=== PATIENT | female | born 1985 ===

== ENCOUNTER 2021-06-13 17:51 | Emergency (ER) | payer SELFPAY ==
--- NOTE | ~2021-06-13 | XR_ITS ---
EXAMINATION: XR KNEE, LEFT CLINICAL INFORMATION: Knee pain after fall COMPARISON: None TECHNIQUE: Four views of the left knee. FINDINGS: There is a transverse fracture through the mid patella with marked soft tissue swelling anteriorly and a associated moderate joint effusion. On the lateral radiograph, a more inferior fracture fragment is seen indicating a comminuted fracture. The distal femur, tibia and fibula appear unremarkable. Joint spaces are well maintained. No abnormal soft tissue calcification. XR/XR knee LT 4V IMPRESSION: Comminuted patellar fracture with associated soft tissue swelling and joint effusion.
[2021-06-13 18:03] VITALS: BP 123/71; PULSE 78; RESP 18; TEMP 36.6; O2SAT 99; BMI 28.3
--- NOTE | 2021-06-13 18:38 | ED.LOWEXIN ---
HPI - Extremity Injury (Lower) General Chief Complaint: Extremity Problem Stated Complaint: knee injury Time Seen by Provider: 06/13/21 18:16 Source: patient Mode of arrival: ambulatory Limitations: no limitations History of Present Illness HPI Narrative: 36-year-old female here with reports of left knee pain after a slip and fall landing directly on the left knee. Patient denies any head injury or any other complaints. Patient is currently trying to get and her last period was about 2 weeks ago. She is unsure if she is today. Related Data Previous Rx's Medication Instructions Recorded acetaminophen 500 mg tablet 500 mg PO Q6H PRN #30 tab 06/13/21 (Tylenol Extra Strength) Allergies Allergy/AdvReac Type Severity Reaction Status Date / Time No Known Allergies Allergy Verified 06/13/21 18:48 Review of Systems Review of Systems: Yes all other systems are reviewed and are negative Constitutional: Constitutional: Reports no additional constitutional complaints, Denies body ache(s), Denies chills, Denies fever(s), Denies headache(s) and Denies weakness Eyes: Eyes: Reports no additional eye complaints and Denies change in vision ENT: Reports system reviewed and no additional complaints, except as documented, Denies dizziness, Denies headache(s), Denies nasal congestion, Denies nasal discharge and Denies neck pain Cardiovascular: Cardiovascular: Reports no additional cardiovascular complaints, Denies chest pain, Denies leg edema and Denies dyspnea Respiratory: Respiratory: Reports no additional respiratory complaints, Denies cough and Denies dyspnea Gastrointestinal: Gastrointestinal: Reports no additional gastrointestinal complaints, Denies abdominal pain, Denies diarrhea, Denies nausea and Denies vomiting Genitourinary: Genitourinary: Reports no additional female genitourinary complaints and Denies urinary incontinence Musculoskeletal: Musculoskeletal: Reports no additional musculoskeletal complaints, Denies back pain, Reports arthralgias, Reports joint swelling, Reports limited range of motion, Denies neck pain, Denies numbness and Denies tingling Integumentary/Breasts: Skin/Breast: Reports system reviewed and no additional complaints, except as docu and Denies rash Neurologic: Reports system reviewed and no additional complaints, except as documented, Denies Abnormal speech present, Denies dizziness, Denies headache(s), Denies numbness, Denies tingling and Denies weakness [facility] Past Medical History Attestation statement: The following information was validated with the patient. Source: old records reviewed and nursing notes reviewed Social History Social History Advance Directives: No Advance Directives Information Provided: No Physical Exam Vital Signs: Vital Signs: Last Vital Signs Temp 97.8 F 06/13/21 18:03 Pulse 78 06/13/21 18:03 Resp 18 06/13/21 18:03 BP 123/71 06/13/21 18:03 Pulse Ox 99 06/13/21 18:03 BMI result Body Mass Index 28.3 Const: General: cooperative, healthy appearing, comfortable and no acute distress Orientation/consciousness: patient oriented x3 Limitations: no limitations HENMT: Head: Yes normal to inspection Ears: hearing grossly normal bilaterally General nose exam: Normal external nose present Face and sinus: Yes normal facial exam Mouth: Normal oral and palatal mucosa present Throat: Yes posterior oropharynx normal Eyes: General: appearance normal, both eyes and all related structures Pupils: Equal, round and reactive pupils present Neck: Neck: Yes normal visual inspection Chest: Chest palpation & inspection: normal inspection of the chest Resp: Effort & Inspection: normal respiratory effort Auscultation: clear to auscultation bilaterally Cardio: Rate: regular rate Rhythm: regular rhythm Peripheral pulses: Peripheral pulses 2+ throughout GI: Inspection: Yes normal to inspection Palpation (GI): Soft to palpation and nontender Auscultation: normal bowel sounds Back/Spine/Pelvis: Thoracic/Lumbar Spine: thoracic and lumbar spine normal to inspection Skin: General skin exam: no rashes or lesions noted Neuro: General: patient oriented x3, no focal motor deficits and normal sensation to monofilament Cranial nerves: Yes Equal, round and reactive pupils present Cognition (Neuro): normal cognition Speech: No Abnormal speech present Gait exam (Neuro): Normal gait present Motor exam (neuro): 5/5 motor strength present throughout Extrem: Other: To the left knee there is an abrasion. There is moderate swelling to the anterior knee with inability to flex and extend the knee due to pain. Neurovascularly intact distally. General: Yes normal to inspection Course Course Course Narrative: 36-year-old female here with reports of left knee pain after a slip and fall landing directly on the knee. X-rays were performed. Patient was unsure so she was shielded for the exam. X-rays of left knee show a comminuted patellar fracture with no displacement. I discussed the case with orthopedics. She will require a knee immobilizer and crutches with close follow-up with Orthopedics. Anticipate surgical intervention outpatient needed. [id number] spoke to the patient. She is currently traveling through [place] on her way home to [facility]. She plans on following up with an orthopedic there next week. She was provided with a disc of her x-rays today. We discussed that she may require surgical intervention and that is why it is critical that she follow up in a timely manner with orthopedics. Again she is unsure if she is so she plans on testing herself this week with a home test and discussing this with orthopedics on follow-up. Patient declined a tetanus immunization. We discussed she may only take Tylenol if she is concerned for . Reviewed rice. Reviewed worrisome signs and symptoms when to return to the emergency department. Comfortable discharge home. MDM - Extremity Injury (Lower) Medical Records Attestation: I reviewed the patient's medical records. Lab Data Attestation: I reviewed the patient's lab results. Imaging Data knee xray: Attestation: I personally reviewed and interpreted this imaging study as follows: Radiologist's impression: FINDINGS: There is a transverse fracture through the mid patella with marked soft tissue swelling anteriorly and a associated moderate joint effusion. On the lateral radiograph, a more inferior fracture fragment is seen indicating a comminuted fracture. The distal femur, tibia and fibula appear unremarkable.? Joint spaces are well maintained. No abnormal soft tissue calcification.? XR/XR knee LT 4V IMPRESSION: Comminuted patellar fracture with associated soft tissue swelling and joint effusion. ? Procedures Procedure Narrative Procedure Narrative: Knee immobilizer, crutches Discharge Plan Discharge Clinical Impression: Patellar fracture Qualifiers: Encounter type: initial encounter Fracture type: closed Fracture alignment: nondisplaced Laterality: left Patient Disposition: Home, Self-Care Instructions: Patellar Fracture (ED) Additional Instructions: Tylenol as needed for pain Ice, elevation of the extremity Use a knee immobilizer and crutches with ambulating. Do not bear weight on the left leg. You may remove the immobilizer at rest You need to see an orthopedic next week. This is very important in order to ensure the healing of your leg Prescriptions: New acetaminophen [Tylenol Extra Strength] 500 mg tablet 500 mg PO Q6H PRN (Reason: pain) Qty: 30 0RF Interventions: ED Discharge Assessment Last Done: 06/13/21 19:12 Discharge Date/Time: 06/13/21 19:12
[2021-06-13] MEDS: Acetaminophen 325 MG TABLET 975 MG PO (19:05)
== END 2021-06-13 19:12 | disposition home or self-care (01) ==
PROVIDERS: Emergency Provider Emergency Medicine Emergency Medical Services
DX: S82.045A Nondisplaced comminuted fracture of left patella, initial encounter for closed fracture (principal); W01.0XXA Fall on same level from slipping, tripping and stumbling without subsequent striking against object, initial encounter; Y93.9 Activity, unspecified; Y92.9 Unspecified place or not applicable; Y99.9 Unspecified external cause status
CPT/HCPCS: 73564; 99283